=== PATIENT | male | born 1995 | race Caucasian/White ===

== ENCOUNTER 2025-01-30 15:36 | Emergency (ER) | payer OTHER, SELFPAY ==
[2025-01-30 15:43] VITALS: BP 117/85
--- NOTE | 2025-01-30 16:37 | ED.MUSCINJ ---
HPI-Injury
General
Chief Complaint: Extremity Pain (non-traumatic)
Source: patient
Exam Limitations: none
Time Seen by Provider: 01/30/25 16:26
History of Present Illness-Injury
Initial Injury comments:
29-year-old male presents complaining of left ankle pain and swelling starting today. He was running with his dogs and twisted his ankle. He was unable to bear weight since then. He notes pain and swelling to the lateral ankle. No prior injury.
No other pains at this time
Past History
Past History
ED Past Medical History: None
ED Past Surgical History: Tonsilectomy and Urological (Undescended testicle and hernia repair)
Social History
Tobacco: Non-smoker
Alcohol: Occasional
Drug: Marijuana
Personal: Single
Living: with family
Employment: Employed
Family History
Family History: Other (Noncontributory); Negative CAD or Sudden
Phy Exam
Physical Exam
Physical Exam:
General: Well-appearing male no acute respiratory distress
Musculoskeletal exam: Left ankle swollen ecchymotic and tender over the distal fibula and inferior to the distal fibula. The medial malleolus is nontender. The rest of the wagner and knee are nontender. He has good range of motion to the ankle. He
is able to resist inversion and eversion. The ankle is stable to a drawer test
Vascular: 2+ DP pulse left foot
Injury Course
Orders/Labs/Results
Orders:
Orders
01/30/25 15:38
Ankle, left 3 view CR [CR Ankle - Left Min 3 Views ] Urgent
Comment:
Reason For Exam: pain/swelling
MDM/Problems Addressed
Differential Diagnosis Includes:
Left ankle pain and swelling after inversion type injury. Consider sprain versus fracture versus dislocation
Personally visualized x-rays of the left ankle which show no acute bony abnormality. Suspect sprain. Patient unable to ambulate. Will apply an orthopedic boot and refer to orthopedics.
*Pulse Oximetry
SaO2: 97
Oxygen Mode of Delivery: Room air
Patient hypoxic: no
*Critical Care Note
Total Time (30-74mins, 75-104mins- exclusive of procedures): Not Applicable
ED Attending Note
-
Portions of this chart may have been created with voice recognition software.� Occasional wrong word or��sound alike� substitutions may have occurred due to the inherent limitations of voice recognition software.
Discharge Plan
Departure
Patient Disposition: Home (Routine Discharge)
Date of Disposition: 01/30/25
Time of Disposition: 16:39
Patient with high blood pressure during this ER visit?: No
Discharge Problem:
Ankle sprain
Instructions: Muscle and Bone Pain (DC)
Prescriptions:
No Action
No Current Medications
0
Referrals:
Danny Malone MD [Active, Orthopedics]
Stand Alone Forms: Return to Work
Activity Restrictions/Additional Instructions:
Use boot when ambulating. Elevate for swelling. Use ice. You may take Tylenol or ibuprofen for pain. Follow-up with orthopedics for further evaluation
Interventions
Interventions:
*Risk Screen - Suicide Last Done: 01/30/25 15:43
*Neglect/Abuse Screening Last Done: 01/30/25 15:43
Discharge Date and Time
Print Language: WELSH
== END 2025-01-30 17:00 | disposition home or self-care (01) ==
LOC: EMR 15:36
PROVIDERS: EMERGENCY PHYSICIAN Emergency Medicine
DX: S93.409A Sprain of unspecified ligament of unspecified ankle, initial encounter (principal); X50.1XXA Overexertion from prolonged static or awkward postures, initial encounter; Y93.02 Activity, running
CPT/HCPCS: 99283; 73610